=== PATIENT | female | born 1975 | race Caucasian/White ===

== ENCOUNTER 2022-06-10 13:05 | Day surgery (SDC) | payer OTHER ==
[2022-06-10] MEDS ORDERED: LIDOCAINE HCL 2% 100 MG/5 ML IJ ONE (13:06)
[2022-06-10] MEDS ORDERED: DIPRIVAN 200 MG/20 ML IV ONE (16:04)
[2022-06-10] MEDS ORDERED: Lactated Ringers 1,000 ML IV ONE ×2 (16:08→17:15)
--- NOTE | 2022-06-10 16:47 | XRAY ---
Indication: Left L4-S1 MBB. Intraoperative fluoroscopy provided for 17 seconds. Single digital spot image submitted for interpretation demonstrates posterior needle tips projecting over the expected left L4-S1 nerve roots. Correlate with intraoperative findings/report.
--- NOTE | 2022-06-11 08:42 | XRAY ---
17 seconds of fluoroscopy was used in surgery for a left L4-S1 MBB.
== END 2022-06-10 16:30 | disposition home or self-care (01) ==
LOC: SDC-PAIN 13:05
PROVIDERS: ATTEND Psychiatry & Neurology Pain Medicine
DX: M47.816 Spondylosis without myelopathy or radiculopathy, lumbar region (principal); Z79.899 Other long term (current) drug therapy
CPT/HCPCS: 64493; 64494; 72020; 77002; 81025; J2704